=== PATIENT | female | born 2000 | race Caucasian/White ===

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

== ENCOUNTER 2021-01-19 17:27 | Emergency (ER) | payer OTHER ==
[~2021-01-19 17:27] MED LIST changes: +NORCO 5-325 TA1 EACH PO; +OMNICEF 300 MG300 MG PO; +PRENATAL VITAM1 EAC6 PO; +TAMIFLU75 MG PO; +ZOFRAN ODT 4 MG4 MG SL; +ZOFRAN4 MG PO
[2021-01-19] MEDS ORDERED: OMNICEF 300 MG300 MG PO (18:19)
[2021-01-19] MEDS ORDERED: IBUPROFEN800 MG PO (18:19)
== END 2021-01-19 19:32 | disposition home or self-care (01) ==
LOC: ER1 17:27
DX: N39.0 Urinary tract infection, site not specified (principal); F17.210 Nicotine dependence, cigarettes, uncomplicated
CPT/HCPCS: 81001; 84703; 96372; 99283; J0696

== ENCOUNTER 2021-03-16 07:35 | Emergency (ER) | payer OTHER ==
[~2021-03-16 07:35] MED LIST changes: +IBUPROFEN800 MG PO
[2021-03-16 08:33] LABS: HEMOGLOBIN 14.6 gm/dl (12.3-15.3); RED BLOOD COUNT 4.85 M/UL (4.00-5.10); WHITE BLOOD COUNT 12.2 K/UL (4.5-11.0)
[2021-03-16 08:51] LABS: BUN/CREATININE RATIO 12 (0-10)
== END 2021-03-16 12:35 | disposition home or self-care (01) ==
LOC: ER1 07:35
PROVIDERS: Emergency Medicine
DX: N83.202 Unspecified ovarian cyst, left side (principal); R79.89 Other specified abnormal findings of blood chemistry; Z87.442 Personal history of urinary calculi; Z90.89 Acquired absence of other organs; F17.200 Nicotine dependence, unspecified, uncomplicated
CPT/HCPCS: 76830; 80053; 81001; 83690; 84703; 85025; 96374; 99284; J2405; J7030

== ENCOUNTER 2021-10-10 22:51 | Emergency (ER) | payer OTHER ==
[2021-10-10 23:36] LABS: HEMOGLOBIN 16.1 gm/dl (12.3-15.3); RED BLOOD COUNT 5.34 M/UL (4.00-5.10); WHITE BLOOD COUNT 14.2 K/UL (4.5-11.0)
[2021-10-10 23:58] LABS: BUN/CREATININE RATIO 8 (0-10)
== END 2021-10-11 02:35 | disposition home or self-care (01) ==
LOC: ER1 22:51
PROVIDERS: Physician Assistant
DX: R00.2 Palpitations (principal); F41.9 Anxiety disorder, unspecified; Z90.49 Acquired absence of other specified parts of digestive tract; R74.8 Abnormal levels of other serum enzymes; F17.210 Nicotine dependence, cigarettes, uncomplicated; Z20.822 Contact with and (suspected) exposure to COVID-19
CPT/HCPCS: 0240U; 71045; 80053; 81001; 82550; 82553; 83874; 84439; 84443; 84484; 85025; 93005; 99285

== ENCOUNTER 2021-10-26 18:49 | Emergency (ER) | payer OTHER ==
[2021-10-26 19:21] LABS: HEMOGLOBIN 15.8 gm/dl (12.3-15.3); RED BLOOD COUNT 5.26 M/UL (4.00-5.10); WHITE BLOOD COUNT 16.2 K/UL (4.5-11.0)
[2021-10-26 19:42] LABS: BUN/CREATININE RATIO 10 (0-10)
[2021-10-26] MEDS ORDERED: ONDANSETRON ODT4 MG SL (22:59)
[2021-10-26] MEDS ORDERED: IMODIUM CAP 2 MG2 MG PO (22:59)
== END 2021-10-27 | disposition home or self-care (01) ==
LOC: ER1 18:49
PROVIDERS: Physician Assistant
DX: R11.2 Nausea with vomiting, unspecified (principal); R19.7 Diarrhea, unspecified; R52 Pain, unspecified; R05.9 Cough, unspecified; R79.89 Other specified abnormal findings of blood chemistry; Z20.822 Contact with and (suspected) exposure to COVID-19
CPT/HCPCS: 0240U; 71045; 80053; 81001; 83690; 84703; 85025; 87081; 87086; 87880; 96374; 96375; 99283; J1885; J2405

== ENCOUNTER 2022-03-18 19:17 | Emergency (ER) | payer OTHER ==
[~2022-03-18 19:17] MED LIST changes: +IMODIUM CAP 2 MG2 MG PO; +ONDANSETRON ODT4 MG SL
== END 2022-03-18 20:05 | disposition home or self-care (01) ==
LOC: ER1 19:17
DX: G56.02 Carpal tunnel syndrome, left upper limb (principal); M67.442 Ganglion, left hand; F17.210 Nicotine dependence, cigarettes, uncomplicated
CPT/HCPCS: 73130; 99283